=== PATIENT | female | born 1975 | race African-American/Black ===

== ENCOUNTER → 2017-03-16 | Outpatient (CLI) | payer OTHER ==
[~2017-03-16] MED LIST: LORTAB 7.5-5001 TAB; NO MEDICATIONS; PHENERGAN25 M1; [UNRECOGNIZED DRUG - OTHER] PO
--- NOTE | ~2017-03-16 | MY11 ---
[facility] A Service of [facility] RADIOLOGY TEXT RESULTS PATIENT: PRIYANKA DELACRUZ LOCATION: [facility] : 77 UNIT #: [id number] AGE: [address]: William Jensen MD SEX: F ORDER DR: [id number] [facility] [address] [place], [place] [address] [id number] O MR#: [id number] Acc #: [id number] NAME: PRIYANKA DELACRUZ : 1975 SEX: F STUDY DATE/TIME: 03/16/2017 8:41 UNIT: [facility] ROOM: STUDY DESCRIPTION: MY Mammogram Screening Dig Guevara Attending Physician: William Jensen M.D. Ordering Physician: William Jensen M.D. Primary Care Physician: William Jensen M.D. MEDICAL IMAGING REPORT This report is preliminary unless electronic signature is present EXAM Digital screening mammogram 03/16/2017, [facility]. HISTORY 41-year-old woman for baseline mammogram. No risk elevation. COMPARISON None FINDINGS Digital imaging of each breast was completed utilizing a two-view examination of each breast in craniocaudal and mediolateral-oblique projections. Review and interpretation of digital mammograms include a second review in conjunction with FDA-approved CAD device. There is a normal parenchymal presentation bilaterally consistent with the patient's age. There are no breast masses imaged and no parenchymal asymmetry is visualized. There are no suspicious microcalcifications and I see no focal architectural disturbance. IMPRESSION Negative screening digital mammogram. One-year followup recommended. Patients over the age of 40 are entered into a reminder system with target due date for the next mammogram. A result letter will also be sent to the patient. BIRADS: 1 Negative Dictated by... Benton Tran M.D. THIS IS AN ELECTRONICALLY VERIFIED REPORT [facility] A Service of [facility] RADIOLOGY TEXT RESULTS PATIENT: PRIYANKA DELACRUZ LOCATION: [facility] : [birth year] UNIT #: [id number] AGE: [address]: William Jensen MD SEX: F ORDER DR: Benton Tran M.D. at 03/16/2017 2:25 PM HALLEY/sena TD: 03/16/2017 12:28 JOB #: [id number] MEDICAL IMAGING REPORT Page 1 of 1 COPY
== END | disposition home or self-care (01) ==
LOC: CWCC 08:18
DX: Z12.31 Encounter for screening mammogram for malignant neoplasm of breast (principal)
CPT/HCPCS: G0202

== ENCOUNTER → 2017-05-08 | Outpatient (CLI) | payer OTHER ==
--- NOTE | ~2017-05-08 | CR218 ---
[facility] A Service of [facility] & [facility] RADIOLOGY TEXT RESULTS PATIENT: PRIYANKA DELACRUZ LOCATION: [facility] : 77 UNIT #: [id number] AGE: [address]: Leonela Darden APRN SEX: F ORDER DR: [id number] [facility] [address] [place], [place] [address] [id number] O MR#: [id number] Acc #: [id number] NAME: PRIYANKA DELACRUZ : 1975 SEX: F STUDY DATE/TIME: 05/08/2017 10:40 UNIT: [facility] ROOM: STUDY DESCRIPTION: CR Sacroiliac Joint <3 Views Attending Physician: Leonela Darden A.P.R.N. Referring Physician: Leonela Darden A.P.R.N. Ordering Physician: Leonela Darden A.P.R.N. Primary Care Physician: William Jensen M.D. MEDICAL IMAGING REPORT This report is preliminary unless electronic signature is present EXAM Sacroiliac joints HISTORY Bilateral sacroiliitis. Back pain chronically over the past 10 years but worse over the past 3 months. TECHNIQUE 3 views of the sacroiliac joints were obtained. FINDINGS There is no evidence of erosion. Sacroiliac joint space is preserved. There is slightly more sclerotic change seen along the right sacroiliac joint compared to the left. This could potentially reflect chronic sacroiliitis. No acute fractures or destructive bone lesions are seen. IMPRESSION Mild sclerosis along the right sacroiliac joint. No active cortical erosions are seen and no evidence of ankylosis. Dictated by... Piero Cardona M.D. THIS IS AN ELECTRONICALLY VERIFIED REPORT Piero Cardona M.D. at 05/11/2017 11:44 AM RLF/roland TD: 05/08/2017 16:29 JOB #: [id number] MEDICAL IMAGING REPORT Page 1 of 1 COPY
== END | disposition home or self-care (01) ==
LOC: CRAD 10:19
DX: M46.1 Sacroiliitis, not elsewhere classified (principal)
CPT/HCPCS: 72200

== ENCOUNTER 2017-06-15 14:00 | Emergency (ER) | payer OTHER ==
[~2017-06-15] VITALS: Ht 167.6 cm; Wt 108.9 kg
--- NOTE | ~2017-06-15 | CR72 ---
[facility] A Service of [facility] & [facility] RADIOLOGY TEXT RESULTS PATIENT: PRIYANKA DELACRUZ LOCATION: [facility] : 77 UNIT #: [id number] AGE: [address]: Gavino Natarajan MD SEX: F ORDER DR: [id number] [facility] [address] [place], [place] [address] [id number] P MR#: [id number] Acc #: [id number] NAME: PRIYANKA DELACRUZ : 1975 SEX: F STUDY DATE/TIME: 06/15/2017 14:49 UNIT: [facility] ROOM: STUDY DESCRIPTION: CR Chest Single View Portable Attending Physician: Gavino Natarajan M.D. Ordering Physician: Gavino Natarajan M.D. Primary Care Physician: William Jensen M.D. MEDICAL IMAGING REPORT This report is preliminary unless electronic signature is present EXAM Portable chest, 06/15/2017 HISTORY Chest pain, nausea and vomiting with sweating beginning last night. FINDINGS A single AP portable view of the chest shows both lungs to be clear. The heart is normal in size. The mediastinal contour is normal. No significant bone abnormalities are seen. IMPRESSION Normal portable chest. Dictated by... Jaren Ward M.D. THIS IS AN ELECTRONICALLY VERIFIED REPORT Jaren Ward M.D. at 06/16/2017 10:37 AM ERNST/emiliano TD: 06/15/2017 15:13 JOB #: [id number] MEDICAL IMAGING REPORT Page 1 of 1 COPY
--- NOTE | ~2017-06-15 | EKG ---
PATIENT: PRIYANKA DELACRUZ UNIT #: [id number] Ventricular Rate: 91 BPM Atrial Rate: 91 BPM P-R Interval: 164 ms QRS Duration: 84 ms Q-T Interval: 370 ms QTC Calculation(Bezet): 455 ms P [place]: 41 degrees Calculated R [place]: 11 degrees Calculated T [place]: 23 degrees Diagnosis Line: Normal sinus rhythm Diagnosis Line: Normal ECG Diagnosis Line: No previous ECGs available Diagnosis Line: Confirmed by MARCO ALLEN MD ([id number]) on Diagnosis Line: 06/19/2017 10:44:40 AM INTERPRETING MD: ALEJANDRO GARZA
[2017-06-15 14:49] LABS: POC - CKMB 1.7 ng/mL (0.0-7.9); POC - TROPONIN <0.05 ng/mL (<=0.05)
[2017-06-15 14:50] LABS: BASOPHIL% 0.3 % (0-2.5); EOSINOPHIL% 0.1 % (0.0-7.0); HEMATOCRIT 34.5 % (35.0-45.0); HEMOGLOBIN 11.5 gm/dL (12.0-16.0); LYMPHOCYTE# 3.3 X10e3 (1.0-3.5); LYMPHOCYTE% 55.5 % (17.0-45.0); MEAN CELL VOLUME 87.8 FL (83-96); MEAN CORPUSCULAR HEMOGLOBIN 29.2 PG (28-34); MEAN CORPUSCULAR HGB CONC 33.3 g/dL (30-36); MEAN PLATELET VOLUME 7.7 FL (6.5-11.5); MONOCYTE# 0.5 X10e3 (0-1.0); MONOCYTE% 8.4 % (3.0-12.0); NEUTROPHIL# 2.1 X10e3 (1.5-7.1); NEUTROPHIL% 35.7 % (40-75); PLATELET COUNT 236 X10e3 (140-420); RED BLOOD COUNT 3.93 X10e (3.90-5.30); WHITE BLOOD COUNT 5.9 X10e3 (4.0-10.5)
[2017-06-15 15:09] LABS: ALBUMIN SERUM 4.3 g/dL (3.5-5.0); BILIRUBIN, DIRECT 0.1 mg/dL (0.0-0.2); BILIRUBIN,INDIRECT 0.1 mg/dL (0.0-0.9); BILIRUBIN,TOTAL 0.2 mg/dL (0.2-2.0); BUN/CREATININE RATIO 14.28; CALCIUM SERUM 9.1 mg/dL (8.4-10.2); CREATININE SERUM 0.7 mg/dL (0.6-1.4); GLOM FILT RATE Estimated 124.7 mL/min (>60); POTASSIUM 3.5 mmol/L (3.5-5.1); PROTEIN TOTAL SERUM 7.7 g/dL (6.0-8.3)
[2017-06-15 15:20] LABS: DIFF IND YES
[2017-06-15 15:28] LABS: URINE SOURCE CLEAN CATCH
[2017-06-15 15:34] LABS: URINE APPEARANCE CLEAR; URINE BILIRUBIN NEG (NEG); URINE BLOOD 2+ (NEG); URINE COLOR YELLOW; URINE GLUCOSE NEG (NEG); URINE KETONE NEG (NEG); URINE LEUKOCYTE ESTERASE NEG (NEG); URINE NITRATE NEG (NEG); URINE PROTEIN NEG (NEG); URINE SPECIFIC GRAVITY 1.005 (1.003-1.035); URINE UROBILINOGEN 0.2 MG/DL (NEG)
[2017-06-15 15:37] LABS: URINE BACTERIA AUWI NEG (NEGATIVE); URINE SQUAMOUS EPITHELIAL CELL NONE SEEN /[HPF]; UWBCS1 AUWI 0-2 (0-5)
[2017-06-15 15:47] LABS: PLATELET ESTIMATE NORMAL (NORMAL)
[2017-06-15 15:48] LABS: HYPOCHROMIA SL
[2017-06-15 15:51] LABS: CULTURE INDICATED? NO
[2017-06-15 15:57] LABS: AMPHETAMINE NEG (NEG); BARBITURATES NEG (NEG); BENZODIAZEPINES NEG (NEG); COCAINE NEG (NEG); MARIJUANA NEG (NEG); OPIATES NEG (NEG); TRICYCLIC ANTIDEPRESSANTS NEG (NEG); U METHADONE NEG (NEG)
== END 2017-06-15 16:50 | disposition home or self-care (01) ==
LOC: CED 14:00
PROVIDERS: Emergency Medicine
DX: F19.10 Other psychoactive substance abuse, uncomplicated (principal); R07.9 Chest pain, unspecified; F41.9 Anxiety disorder, unspecified; F17.200 Nicotine dependence, unspecified, uncomplicated; Z98.890 Other specified postprocedural states
CPT/HCPCS: 36415; 71010; 80048; 80076; 80307; 81003; 82553; 84484; 84703; 85025; 93005; 96361; 96374; 96375; 99285; J2060; J2405